=== PATIENT | male | born 1945 | race Caucasian/White ===

== ENCOUNTER 2019-07-04 10:12 | Emergency (ER) | payer MEDICARE ==
[~2019-07-04] VITALS: Ht 175.3 cm; Wt 97.7 kg
[~2019-07-04 10:12] MED LIST: ATOR10TA87 PO; AZIT250T PO; CARI350T PO; LISI-222 PO; NORCO10T PO
[2019-07-04 10:47] VITALS: BP 146/86
--- NOTE | 2019-07-04 10:54 | NUR ---
Pt has no medical complaints, just worried because is sick. See medical screening exam by .
== END 2019-07-04 12:46 | disposition home or self-care (01) ==
LOC: ER 10:12
DX: Z11.8 Encounter for screening for other infectious and parasitic diseases (principal); E78.00 Pure hypercholesterolemia, unspecified; I10 Essential (primary) hypertension; Z90.49 Acquired absence of other specified parts of digestive tract; Z98.890 Other specified postprocedural states; Z91.048 Other nonmedicinal substance allergy status; Z79.2 Long term (current) use of antibiotics; Z79.899 Other long term (current) drug therapy
CPT/HCPCS: 99281

== ENCOUNTER 2023-09-26 07:42 | Day surgery (SDC) | payer MEDICARE ==
[2023-09-19 14:32] LABS: BASOPHILS % (AUTO) 0.8 % (0-1); EOSINOPHILS # (AUTO) 0.1 X10'3 (0-0.9); LYMPHOCYTES # (AUTO) 1.1 X10'3 (1.1-4.8); LYMPHOCYTES % (AUTO) 16.9 % (21-51); MEAN CORPUSCULAR HEMOGLOBIN 33.9 PG (27.0-31.0); MEAN CORPUSCULAR HGB CONC 33.2 g/dL (33.0-36.5); MEAN CORPUSCULAR VOLUME 102.2 FL (78-98); MEAN PLATELET VOLUME 7.8 FL (7.4-10.4); MONOCYTES # (AUTO) 0.9 X10'3 (0-0.9); MONOCYTES % (AUTO) 14.5 % (2-12); NEUTROPHILS # (AUTO) 4.2 X10'3 (1.8-7.7); NEUTROPHILS % (AUTO) 66.8 % (42-75); PRE OP HEMATOCRIT 47.1 % (42.0-52.0); PRE OP HEMOGLOBIN 15.6 g/dL (14.0-17.9); PRE OP PLATELET COUNT 224 X10'3 (140-440); PRE OP WHITE BLOOD COUNT 6.2 10'3 (4.8-10.8); RED BLOOD COUNT 4.61 X10'6 (4.70-6.10); RED CELL DISTRIBUTION WIDTH 16.5 % (11.5-14.5)
[2023-09-19 14:43] LABS: PRE OP INR 1.1 INR; PRE OP PROTIME 11.3 SECONDS (9.0-12.0)
[2023-09-19 14:45] LABS: ALKALINE PHOSPHATASE 65 IU/L (46-116); BLOOD UREA NITROGEN 13 MG/DL (7-18); BUN/CREATININE RATIO 13.1 (10.0-20.0); CALCIUM 8.7 MG/DL (8.5-10.1); CHLORIDE 101 MMOL/L (99-107); CREATININE 0.99 MG/DL (0.60-1.10); PRE OP ALT 22 U/L (30-65); PRE OP ANION GAP 6 (8-16); PRE OP AST 22 U/L (10-37); PRE OP BILIRUB, TOTAL 0.9 MG/DL (0.0-1.0); PRE OP GLUCOSE 89 MG/DL (70-104); PRE OP POTASSIUM 3.7 MMOL/L (3.4-5.1); PRE OP SODIUM 134 MMOL/L (135-145); TOTAL CARBON DIOXIDE 27.3 MMOL/L (24-32); eGFR 73 ML/MIN
[~2023-09-26] VITALS: Ht 177.8 cm; Wt 85.1 kg
[2023-09-26] VITALS (36 sets, daily range): BP systolic 117–152; BP diastolic 70–95; PULSE 59–114; RESP 2–24; TEMP 97.2–97.8; O2SAT 86–99
[~2023-09-26 07:42] MED LIST changes: -ATOR10TA87 PO; -AZIT250T PO; -CARI350T PO; +HYDR500C2 PO; -NORCO10T PO
[2023-09-26] MEDS: ringers solution, lacted 1,000 ML IV SCH ×2 (08:55→14:01)
[2023-09-26] MEDS: famotidine 20mg tablet PO ONE (08:55)
[2023-09-26] MEDS: tranexamic acid inj. 1,000 MG in normal saline IV soln 100ML IV ONE (08:56)
[2023-09-26] MEDS: cefazolin 2gm/D5W 100mL 100 ML IV ONE (08:57)
[2023-09-26] MEDS ORDERED: sevoflurane 250ml liquid IH ONE (10:09)
[2023-09-26] MEDS ORDERED: magnesium hydroxide 30ml (MOM) UD suspension PO PRN (10:10)
[2023-09-26] MEDS ORDERED: ondansetron/PF 4mg/2ml inj IV PRN (10:10)
[2023-09-26] MEDS ORDERED: acetaminophen 325mg tablet PO PRN (10:10)
[2023-09-26] MEDS ORDERED: bisacodyl 10mg suppository rectal RC PRN (10:10)
[2023-09-26] MEDS ORDERED: naloxone 0.4 mg/ml inj IV PRN (10:10)
[2023-09-26] MEDS ORDERED: midazolam 1 mg/ML 2ml injection ONE (10:15)
[2023-09-26] MEDS ORDERED: fentaNYL/PF 50MCG/1 ML 2ML syringe ONE (10:29)
[2023-09-26] MEDS ORDERED: ROPIVAcaine 0.5% (5mg/ml) 30ml vial ONE (10:30)
[2023-09-26] MEDS ORDERED: ondansetron/PF 4mg/2ml inj ONE (10:31)
[2023-09-26] MEDS ORDERED: LIDOcaine 1%/PF 5ML 10 MG/ML VIAL ONE (10:31)
[2023-09-26] MEDS ORDERED: rocuronium 10mg/ml inj IV ONE (10:31)
[2023-09-26] MEDS ORDERED: ePHEDrine 50MG/ML INJ. ONE (10:49)
[2023-09-26] MEDS ORDERED: propofol inj 20 ML IV ONE (10:50)
[2023-09-26] MEDS: vancomycin 1,000mg inj ONE (10:53)
[2023-09-26] MEDS: vancomycin 1,000mg inj IVT ONE (11:13)
[2023-09-26] MEDS ORDERED: meperidine/PF 25mg/ml syringe IV PRN (12:10)
[2023-09-26] MEDS ORDERED: enalaprilat dihydrate 2.5mg/2ml vial IV PRN (12:10)
[2023-09-26] MEDS ORDERED: morphine 2 MG/ML inj. syringe IV PRN (12:10)
[2023-09-26] MEDS ORDERED: labetalol 20mg/4ml (5mg/ml) syringe IV PRN (12:10)
[2023-09-26] MEDS ORDERED: proCHLORperazine 10 MG/2 ml inj IV PRN (12:10)
[2023-09-26] MEDS ORDERED: morphine 4 MG/ML inj SYRINge IV PRN (12:10)
[2023-09-26] MEDS: ondansetron/PF 4mg/2ml inj IV PRN (13:07)
[2023-09-26] MEDS: meperidine/PF 25mg/ml syringe IV PRN ×2 (13:43→14:47)
[2023-09-26] MEDS: HYDROcodone/acetaminophen 10/325mg tab PO PRN ×2 (17:34→21:54)
[2023-09-26] MEDS: cefazolin 2gm/D5W 100mL 100 ML IV SCH (21:54)
[2023-09-26] MEDS: potassium cl 20mEq in 1/2 NS 1,000 ML IV SCH (23:30)
[2023-09-27] MEDS: diphenhydrAMINE 25mg capsule PO PRN (02:31)
[2023-09-27 06:00] VITALS: BP 147/85; PULSE 75; RESP 18; TEMP 96.2; O2SAT 98
[2023-09-27 07:58] LABS: BASOPHILS % (AUTO) 0.1 % (0-1); EOSINOPHILS % (AUTO) 0 % (0-6); HEMATOCRIT 46.7 % (42.0-52.0); HEMOGLOBIN 15.3 g/dl (14.0-17.9); LYMPHOCYTES # (AUTO) 0.8 X10'3 (1.1-4.8); LYMPHOCYTES % (AUTO) 7.6 % (21-51); MEAN CORPUSCULAR HEMOGLOBIN 33.8 PG (27.0-31.0); MEAN CORPUSCULAR HGB CONC 32.7 g/dL (33.0-36.5); MEAN CORPUSCULAR VOLUME 103.5 FL (78-98); MEAN PLATELET VOLUME 8.1 FL (7.4-10.4); MONOCYTES # (AUTO) 1.6 X10'3 (0-0.9); MONOCYTES % (AUTO) 14.4 % (2-12); NEUTROPHILS # (AUTO) 8.5 X10'3 (1.8-7.7); NEUTROPHILS % (AUTO) 77.9 % (42-75); PLATELET COUNT 228 X10'3 (140-440); RED BLOOD COUNT 4.52 X10'6 (4.70-6.10); RED CELL DISTRIBUTION WIDTH 15.7 % (11.5-14.5)
[2023-09-27] MEDS: lisinopril 5mg tablet PO SCH (08:18)
[2023-09-27 08:53] LABS: ALANINE AMINOTRANSFERASE 19 U/L (12-78); ALBUMIN 3.7 G/DL (3.4-5.0); ALBUMIN/GLOBULIN RATIO 0.9 (1.1-1.5); ALKALINE PHOSPHATASE 55 IU/L (46-116); ANION GAP 13 (8-16); ASPARTATE AMINO TRANSFERASE 34 U/L (10-37); BILIRUBIN,TOTAL 1.1 MG/DL (0.1-1.0); BLOOD UREA NITROGEN 19 MG/DL (7-18); BUN/CREATININE RATIO 18.3 (10.0-20.0); CALCIUM 8.7 MG/DL (8.5-10.1); CHLORIDE 101 MMOL/L (99-107); CREATININE 1.04 MG/DL (0.60-1.10); GLUCOSE 102 MG/DL (70-104); POTASSIUM 4.6 MMOL/L (3.5-5.1); SODIUM 136 MMOL/L (135-145); TOTAL CARBON DIOXIDE 22.4 MMOL/L (24-32); TOTAL PROTEIN 7.9 G/DL (6.4-8.2); eCRCL 62 ML/MIN; eGFR 69 ML/MIN
[2023-09-27 10:00] VITALS: BP 113/67; PULSE 71; RESP 15; TEMP 98.1; O2SAT 98
== END 2023-09-27 10:40 | disposition home or self-care (01) ==
LOC: PAS 07:42 → ORTHO 4S 10:06 → PAS 09-27 10:40
PROVIDERS: ATTEND Specialist
DX: M19.011 Primary osteoarthritis, right shoulder (principal); G89.18 Other acute postprocedural pain; I10 Essential (primary) hypertension; Z79.1 Long term (current) use of non-steroidal anti-inflammatories (NSAID); Z79.899 Other long term (current) drug therapy; Z90.49 Acquired absence of other specified parts of digestive tract; Z98.890 Other specified postprocedural states; Z91.041 Radiographic dye allergy status
CPT/HCPCS: 23430; 23472; 36415; 64415; 71046; 73030; 80053; 82948; 85025; 85610; 85730; 86885; 86900; 86901; 87081; 97110; 97161; 97530; A4565; A4615; A4618; A6402; A6455; A7000; C1776; J0690; J1100; J2001; J2175; J2250; J2405; J2704; J2795; J3010; J3370; J3480; J3490; J7030; J7120; Q0163; Z7506; Z7508; Z7512; Z7610; 76000; A6449; G0378